=== PATIENT | male | born 1965 | race Caucasian/White ===

== ENCOUNTER → 2018-04-15 15:40 | Outpatient (CLI) | payer OTHER, SELFPAY ==
[2018-04-15 17:40] LABS: Absolute Lymphocyte Count 1.53 X10^3/ul (0.83-4.51); Absolute Neutrophil Count 3.4 X10^3/uL (2.0-7.7); Basophil# 0.04 X10^3/uL; Basophil% 0.7 % (0-1); Eosinophil# 0.09 X10^3/uL; Eosinophils% 1.6 % (0-5); Lymphocyte # 1.53 X10^3/ul (4.0); Lymphocyte % 27.8 % (19-41); Mean Corpuscular Hgb 31.7 pg (27.0-32.0); Mean Corpuscular Volume 93.1 fL (80-94); Mean Platelet Vol. 10.9 fl (6.2-12.0); Monocyte# 0.43 X10^3/uL; Monocyte% 7.8 % (0-10); Neutrophil # 3.41 X10^3/uL (2.7-7.7); Neutrophil % 61.9 % (47-70); Platelet Count 111 K/mm3 (150-450); RBC Distribution Width CV 12.8 % (11.6-14.6); RBC Distribution Width SD 43.1 fl (35.1-43.9); Red Blood Count 5.05 M/mm3 (4.6-6.2); White Blood Count 5.5 K/mm3 (4.4-11.0)
[2018-04-15 17:47] LABS: POSITIVE COUNT NO; POSITIVE DIFFERENTIAL NO; POSITIVE MORPHOLOGY NO
[2018-04-15 17:52] LABS: ALB/GLOB Ratio 1.3 RATIO (0.9-2.4); AST(SGOT) 17 U/L (15-37); Alanine Aminotransfer ALT/SGPT 40 U/L (16-61); Albumin, Serum 3.9 g/dL (3.2-5.0); Alkaline Phosphatase 59 U/L (45-117); Anion Gap 7 (5-15); BUN 17 mg/dL (7-18); BUN/Creat Ratio 24.3 RATIO (10-20); Calcium,Total 8.4 mg/dL (8.5-10.1); Chloride 103 mmol/L (98-107); EST Glomerular Filtration Rate 126 mL/min (>60); Est Glom Filt Rate - Afr Amer 152 mL/min (>60); Globulin 3.1 g/dL (2.2-4.2); Glucose 163 mg/dL (74-106); Potassium 4.2 mmol/L (3.5-5.1); Sodium Level 138 mmol/L (136-145); Thyroid Stim Hormone (TSH) 0.72 uIU/mL (0.358-3.74)
== END ==
PROVIDERS: Family Provider Family Medicine; PCP Family Medicine; Visit Provider Family Medicine
DX: E11.65 Type 2 diabetes mellitus with hyperglycemia (principal); E78.6 Lipoprotein deficiency; E78.1 Pure hyperglyceridemia
CPT/HCPCS: 36415; 80053; 84443; 85025

== ENCOUNTER → 2018-07-15 | Outpatient (CLI) | payer OTHER, SELFPAY ==
[2018-07-15 17:25] LABS: Vitamin B12 373 pg/mL (211-911)
[2018-07-15 17:38] LABS: Absolute Lymphocyte Count 1.43 X10^3/ul (0.83-4.51); Absolute Neutrophil Count 3.5 X10^3/uL (2.0-7.7); Basophil# 0.04 X10^3/uL; Basophil% 0.7 % (0-1); Eosinophil# 0.11 X10^3/uL; Hematocrit 45.6 % (40-54); Hemoglobin 16.3 g/dl (13.0-16.5); Lymphocyte # 1.43 X10^3/ul (4.0); Mean Corp Hgb Conc 35.7 g/gl (32-36); Mean Corpuscular Volume 89.6 fL (80-94); Monocyte# 0.44 X10^3/uL; Neutrophil # 3.48 X10^3/uL (2.7-7.7); Neutrophil % 63.1 % (47-70); Platelet Count 121 K/mm3 (150-450); RBC Distribution Width SD 42.1 fl (35.1-43.9); Red Blood Count 5.09 M/mm3 (4.6-6.2); White Blood Count 5.5 K/mm3 (4.4-11.0)
[2018-07-15 17:44] LABS: POSITIVE COUNT NO; POSITIVE DIFFERENTIAL NO; POSITIVE MORPHOLOGY NO
== END | disposition home or self-care (01) ==
LOC: LAB.FUTURE 16:12
PROVIDERS: Family Provider Family Medicine; PCP Family Medicine; Visit Provider Family Medicine
DX: D69.6 Thrombocytopenia, unspecified (principal); E11.65 Type 2 diabetes mellitus with hyperglycemia
CPT/HCPCS: 36415; 82607; 85025

== ENCOUNTER → 2018-09-15 | Outpatient (CLI) | payer OTHER, SELFPAY ==
[2018-09-15 13:11] LABS: Microalbumin,Random Urine 5.5 mg/L (NO RANGE EST.); Microalbumin:Creatinine Ratio 7.5 mg/g CRE (<30 mg/g CRE)
== END | disposition home or self-care (01) ==
LOC: BFHLAB 09:25
PROVIDERS: Family Provider Family Medicine; PCP Family Medicine; Visit Provider Family Medicine
DX: E11.65 Type 2 diabetes mellitus with hyperglycemia (principal); D69.6 Thrombocytopenia, unspecified
CPT/HCPCS: 82043; 82570

== ENCOUNTER → 2019-04-05 09:24 | Outpatient (CLI) | payer OTHER, SELFPAY ==
[2019-04-05 12:53] LABS: Thyroid Stim Hormone (TSH) 1.59 uIU/mL (0.358-3.74)
== END ==
PROVIDERS: PCP Family Medicine; Visit Provider Family Medicine
DX: R53.83 Other fatigue (principal); R68.82 Decreased libido
CPT/HCPCS: 36415; 84403; 84443

== ENCOUNTER → 2020-02-22 14:07 | Outpatient (CLI) | payer OTHER, SELFPAY ==
[2020-02-22 16:41] LABS: Follicle Stimulating Hormone 6.3 mIU/mL
== END ==
PROVIDERS: PCP Family Medicine; Visit Provider Family Medicine
DX: E34.9 Endocrine disorder, unspecified (principal)
CPT/HCPCS: 36415; 83001; 83002; 84403

== ENCOUNTER 2021-09-18 21:41 | Emergency (ER) | payer OTHER, BC, SELFPAY ==
[2021-09-18 21:42] VITALS: BP 148/86; PULSE 83; RESP 16; TEMP 36.7; O2SAT 98; BMI 28.4
--- NOTE | 2021-09-18 22:46 | CT_ITS ---
STUDY: CT ABDOMEN AND PELVIS WITH CONTRAST REASON FOR EXAM: Male, 55 years old. ? Hematoma versus active extravasation S/P surgery RADIATION DOSAGE (If Supplied By Facility): CTDIvol = ( 14.03 ) mGy, DLP = ( 999.83 ) mGycm TECHNIQUE: Transaxial images were obtained from the dome of the diaphragm to the symphysis pubis without oral contrast. IV 100mL Isovue-370 was administered. Sagittal and coronal images were reconstructed. Individualized dose optimization techniques were used for this CT. COMPARISON: None. FINDINGS: The visualized lung bases are unremarkable. The visualized portions of the heart are within normal limits. Normal liver. Normal gallbladder and extrahepatic biliary system. Normal spleen. Normal pancreas. Normal bilateral adrenal glands. Normal right kidney. Normal left kidney. Normal visualized stomach. Normal small intestine. Normal colon. The appendix is visualized and appears normal. Normal abdominal aorta. Normal inferior vena cava. Normal retroperitoneum. Normal urinary bladder. Normal visualized prostate gland. Edema and soft tissue gas in the subcutaneous tissues superior to the penis, and along the proximal base of the penis. Edema throughout the scrotum. A surgical drain courses around the dorsal penis and terminates in the scrotum. There is no finding of hematoma or extravasation. Degenerative changes in the thoracolumbar spine. CT/Abdomen/Pelvis W IV Cont ONLY IMPRESSION: Postoperative swelling and gas about the groin, penis, and scrotum without finding of hematoma or active extravasation. Electronically Signed: Papo Escobar MD at 0:16 EDT ,
[2021-09-18 23:15] LABS: Absolute Lymphocyte Count 0.89 X10^3/uL (0.83-4.51); Absolute Neutrophil Count 6.3 X10^3/uL (2.0-7.7); Basophil# 0.03 X10^3/uL; Basophil% 0.4 % (0-1); Eosinophil# 0.08 X10^3/uL; Hematocrit 38.5 % (40-54); Hemoglobin 13.2 g/dL (13.0-16.5); Lymphocyte # 0.89 X10^3/ul (0.83-4.51); Mean Corp Hgb Conc 34.3 g/dL (32-36); Mean Corpuscular Hgb 32.1 pg (27.0-32.0); Mean Corpuscular Volume 93.7 fL (80-94); Mean Platelet Vol. 10.7 fl (6.2-12.0); Monocyte# 0.81 X10^3/uL; NRBC Flagged by Analyzer 0 % (0-5); Neutrophil # 6.27 X10^3/uL (2.7-7.7); Neutrophil % 77.2 % (47-70); Platelet Count 112 K/mm3 (150-450); RBC Distribution Width CV 12.8 % (11.6-14.6); Red Blood Count 4.11 M/mm3 (4.6-6.2); White Blood Count 8.1 K/mm3 (4.4-11.0)
[2021-09-18 23:17] LABS: International Normalized Ratio 1.1; Prothrombin Time (Protime)PT. 13.8 SECONDS (11.7-14.9)
[2021-09-18 23:18] LABS: Partial Thromboplast Time 30.7 Seconds (24.1-36.2)
[2021-09-18] MEDS: 0.9% Normal Saline 1,000 ML 999 ML IV (23:25)
[2021-09-18 23:43] LABS: Anion Gap 6 (5-15); BUN 19 mg/dL (7-18); BUN/Creat Ratio 23.6 RATIO (10-20); Calcium,Total 8.3 mg/dL (8.5-10.1); Chloride 109 mmol/L (98-107); EST Glomerular Filtration Rate 106 mL/min (>60); Est Glom Filt Rate - Afr Amer 128 mL/min (>60); Estimated Creatinine Clearance 94.15 ml/min; Glucose 225 mg/dL (74-106); Potassium 3.7 mmol/L (3.5-5.1); Sodium Level 139 mmol/L (136-145)
--- NOTE | 2021-09-19 00:35 | EDS_ITS ---
HPI History of Present Illness Chief Complaint: Male Pain/Injury Narrative Narrative: Patient is a 55-year-old male with past medical history of diabetes and erectile dysfunction. He underwent a penis pump implant placement today at an outside hospital which finished surgery around 10 AM. He states he was doing well but this evening developed increased bleeding from the surgical incision sites and is concerned him and therefore he presents for evaluation. He denies any history of bleeding disorder or blood thinner use. [facility] Medical History (Updated 09/19/21 @ 00:[address] Antwan Cohen DO) Diabetes Diabetes Erectile dysfunction High blood pressure High cholesterol High triglycerides Obesity Seasonal allergies Vision problem Home Medications arginine (L-arginine) 500 mg capsule mg PO 06/15/20 [History Last Taken Unknown] aspirin 81 mg tablet,delayed release (Adult Low Dose Aspirin) 81 mg PO DAILY 06/15/20 [History Last Taken Unknown] chromium picolinate 200 mcg tablet 200 mcg PO DAILY 06/15/20 [History Last Taken Unknown] cinnamon bark-chromium picolinate 500 mg-100 mcg capsule cap PO 06/15/20 [History Last Taken Unknown] metformin 500 mg tablet mg PO 06/15/20 [History Last Taken Unknown] sitagliptin 50 mg tablet ea PO 06/15/20 [History Last Taken Unknown] Allergy/AdvReac Type Severity Reaction Status Date / Time doxycycline Allergy Hives Verified 09/18/21 21:47 Family History Other defect Cancer Myocardial infarction Social History (Updated 06/15/20 @ 17:[address] Mika Pelaez MD) Smoking Status: Never smoker alcohol intake: current alcohol intake frequency: 0-2 drinks per day substance use type: does not use what type of physical activity do you participate in: walking ROS ROS ED Constitutional Constitutional ED: Denies chills or fever(s) ENT ENT ED: Denies sore throat Cardiovascular Cardiovascular: Denies chest pain or racing heartbeat Respiratory/Chest Respiratory/Chest: Denies cough or dyspnea Gastrointestinal Gastrointestinal: Denies abdominal pain, diarrhea, nausea or vomiting Genitourinary Genitourinary ED: Reports other Details: Positive testicular pain and swelling ; Denies dysuria Musculoskeletal Musculoskeletal: Denies myalgias Integumentary Denies rash Neurologic Neurologic: Denies headache(s) Hematologic/Lymphatic Hematologic/Lymphatic: Denies easy bleeding or easy bruising EXAM Physical Exam Const Vital Signs: 09/18/21 21:42 Temperature 98.1 F Temperature Source Temporal Pulse Rate 83 Respiratory Rate 16 Blood Pressure 148/86 H Blood Pressure Mean 106 Pulse Ox 98 Oxygen Delivery Method Room Air Positive well nourished and well developed General Appearance ED: well developed HEENT Reports moist mucous membranes Neck supple Resp normal respiratory effort and clear to auscultation bilaterally Cardio regular rate and regular rhythm GI non-tender and non-distended Auscultation: normoactive bowel sounds Palpation: soft Narrative: Patient has a large amount of ecchymosis and soft tissue swelling of the scrotum consistent with his recent surgery. There is no blood or discharge from the urethral meatus. The patient has a AMA drain inserted into the left side of the scrotum and it appears to be intact and draining appropriate amount of dark blood. There is another incision along the lower section of the left side scrotum which also appears to be clean dry and intact. There is no active bleeding noted at this time Extremity normal to inspection Neuro oriented x3 and CN's II-XII intact bilaterally Sensorium / Orientation: alert Psych mental status grossly normal Skin no rashes or lesions noted Skin Narrative: Soft tissue changes to the scrotum as documented above MDM MDM MDM Narrative Medical decision making narrative: Patient presented with stable vitals and no active bleeding as well as no history of bleeding disorder or blood thinner use. With his report of bleeding at home basic blood work was obtained as well as a CT scan to make sure there was no active extravasation. Blood work revealed a stable H&H and platelets at the patient's baseline. CT scan did not show any type of active extravasation. The case was discussed with urology on-call for the patient at the outside [facility] and they feel that with no active bleeding stable vitals and stable H&H there is no need for transfer. On reevaluation there has been no further bleeding in the ER and therefore patient will be discharged home with outpatient follow-up. Lab Data Attestation: I reviewed the patient's lab results. Labs: Laboratory Results - last 24 hr 09/18/21 09/18/21 09/18/21 23:00 23:00 23:00 WBC 8.1 RBC 4.11 L Hgb 13.2 Hct 38.5 L MCV 93.7 MCH 32.1 H MCHC 34.3 RDW Std Deviation 44.0 H RDW Coeff of Janak 12.8 Plt Count 112 L MPV 10.7 Immature Gran % (Auto) 0.400 Neut % (Auto) 77.2 H Lymph % (Auto) 11.0 L [place] % (Auto) 10.0 Eos % (Auto) 1.0 Baso % (Auto) 0.4 Absolute Neuts (auto) 6.3 Absolute Lymphs (auto) 0.89 Nucleated RBC % 0 PT 13.8 INR 1.1 APTT 30.7 Sodium 139 Potassium 3.7 Chloride 109 H Carbon Dioxide 24.0 Anion Gap 6 BUN 19 H Creatinine 0.80 Estim Creat Clear Calc 94.15 Est GFR (MDRD) Af Amer 128 Est GFR (MDRD) Non-Af 106 BUN/Creatinine Ratio 23.6 H Glucose 225 H Calcium 8.3 L Radiography Diagnostic Testing: Clinical Impression(s) from Imaging Studies Abdomen/Pelvis CT 09/18/21 22:46 IMPRESSION: Postoperative swelling and gas about the groin, penis, and scrotum without finding of hematoma or active extravasation. Electronically Signed: Papo Escobar MD at 0:16 EDT , Discharge Plan Triage Chief Complaint: Male Pain/Injury ED Provider: Antwan Cohen Dx/Rx/DC Orders Clinical Impression: Postoperative bleeding from incision, Erectile dysfunction, Diabetes Instructions: ED Hematoma Prescriptions: No Action metformin 500 mg tablet PO sitagliptin 50 mg tablet PO Label Comments: TAKE 1 TABLET BY MOUTH ONCE DAILY aspirin [Adult Low Dose Aspirin] 81 mg tablet,delayed release (DR/EC) 81 mg PO DAILY chromium picolinate 200 mcg tablet 200 mcg PO DAILY cinnamon bark-chromium picolinate 500 mg-100 mcg capsule 500-100 mg-mcg capsule PO arginine (L-arginine) 500 mg capsule PO Primary Care Provider: Franki Vincent Referrals: Franki Vincent MD [Primary Care Provider] - Activity Restrictions/Additional Instructions: Continue to wear tight fitting underwear and gauze pads as bleeding can occur through the incision sites with changes in position and gravity. If you have more bleeding then he feels appropriate or develop lightheadedness or dizziness or passing out please return to the ER for repeat evaluation Disposition Disposition: Home, Self Care
[2021-09-19 00:58] VITALS: BP 128/79; PULSE 71; RESP 15; O2SAT 99
== END 2021-09-19 00:58 | disposition home or self-care (01) ==
PROVIDERS: Emergency Provider Emergency Medicine; PCP Family Medicine; Visit Provider Emergency Medicine
DX: L76.21 Postprocedural hemorrhage of skin and subcutaneous tissue following a dermatologic procedure (principal); E11.9 Type 2 diabetes mellitus without complications; N52.9 Male erectile dysfunction, unspecified
CPT/HCPCS: 74177; 80048; 85025; 85610; 85730; 99283; J7030; Q9967; A4216

== ENCOUNTER 2023-08-19 06:29 | Day surgery (SDC) | payer OTHER, BC, SELFPAY ==
[2023-08-19] VITALS (9 sets, daily range): BP systolic 101–163; BP diastolic 73–84; PULSE 59–74; RESP 14–16; TEMP 36.1–36.6; O2SAT 100; BMI 27.1
[2023-08-19] MEDS: Lactated Ringers 1,000 ML 15 ML IV (07:22)
--- NOTE | 2023-08-19 07:37 | PCM.PRE.AN2 ---
ASA Classification* ASA Classification ASA Classification: 2 Assessment & Plan Anesthesia* Anesthesia Assessment Anesthesia Assessment: Discussed sedation and/or anesthesia options, risks, benefits, and alternatives with patient/parents/legal guardian/POA. Questions invited. The patient/parents/legal guardian/POA seems to understand and agrees to proceed with anesthesia plan. Reviewed the physical assessment, medical history, allergy history and patient home medications list prior to surgery/procedure/anesthetic and documented any changes. Performed airway and anesthesia risk assessments. Anesthesia Type Anesthesia Type: MAC (see written pre anesthesia record for complete assessment) Pre-Assessment Diagnosis/Proposed Procedure Planned Operative Procedure(s): CSCOPE OA Anesthesia History Anesthesia History - acting instructor: Anesthesia History - acting instructor Hx Hospitalization No 08/13/23 14:39 Any Problems With Anesthesia No 08/13/23 14:39 Cholinesterase deficiency No 08/13/23 14:39 You/Your Family Experience No 08/13/23 14:39 fever (hyperthermia) with Relationship Recent Exposure to Contagious No 08/19/23 07:17 Disease Does patient have nerve No 08/13/23 14:39 stimulator Patient instructed to have device shut off --Does patient have Pacemaker No 08/19/23 07:17 or ICD? When Was Last Pacemaker Check QUESTION #4 FULL TEXT: You/Your Family Experience fever (hyperthermia) with Anesthesia Last Oral Intake Last Oral intake: Last Oral Intake NPO since 03:30 08/19/23 07:17 Meds taken in AM with sips of No 08/19/23 07:17 water? Meds patient instructed to take am of surgery PONV PONV - acting instructor: PONV - acting instructor Female No 08/13/23 14:39 HX of Motion Sickness No 08/13/23 14:39 HX of N/V After Surgery No 08/13/23 14:39 Non-Smoker Yes 08/13/23 14:39 Duration of Surgery greater No 08/13/23 14:39 than 60 minutes Number of Risk Factors 1 08/13/23 14:39 PONV Score Low Risk 08/13/23 14:39 Height & Weight Height & Weight: Anesthesia: Height & Weight Height 5 ft 6 in 08/19/23 07:17 Weight: 76.2 kg 08/19/23 07:17 Body Mass Index (BMI) 27.1 08/19/23 07:17 Respiratory Assessment Respiratory Assessment - acting instructor: Respiratory Tract Infection Hx - acting instructor Hx Respiratory Tract Infection No 08/13/23 14:39 STOP Sleep Apnea STOP Sleep Apnea - acting instructor: STOP Sleep Apnea - acting instructor Hx Hypertension Yes: NO MEDS FOR MANY YRS 08/13/23 14:39 PER PATIENT Hx Sleep Apnea No 08/13/23 14:39 CPAP BIPAP Do you snore loudly (louder No 08/13/23 14:39 than talking or can be heard Do you often feel tired/ No 08/13/23 14:39 fatigued/ sleepy during daytime? Has anyone observed you stop No 08/13/23 14:39 breathing during sleep? STOP Results Negative 08/13/23 14:39 QUESTION #5 FULL TEXT : Do you snore loudly (louder than talking or can be heard through closed doors)? Tobacco Use History Tobacco Use History - acting instructor: Tobacco Use History - acting instructor Tobacco Use Smoking Status Never smoker 08/13/23 14:39 Hx Tobacco Use No 08/13/23 14:39 Years Smoking Packs Smoked per Day Smoking Cessation Date was within the last 15 years Hx Smoking Cessation Date Hx Smoking Cessation Counseling Hematologic Medial History Hematologic Hx - acting instructor: Hematologic Medical Hx - electrophysiology tech Hx of Blood Transfusion No 08/13/23 14:39 Hx of Transfusion in last 3 No 08/13/23 14:39 Months Date of Last Transfusion (if within last 3 months) Ever experience any problems No 08/13/23 14:39 with transfusion(s)? Specify any problems Hx of Preganancy in last 3 N/A 08/13/23 14:39 Months Nurse Filling Out Transfusion DSCHRIBER 08/13/23 14:39 & Questions: Date: 08/13/23 08/13/23 14:39 Time: 14:41 08/13/23 14:39 Patient unable to answer at this time (ie. confused, unrespo /Reproduction History /Reproductive History - acting instructor: /Reproductive Hx- acting instructor Hx Now No 08/13/23 14:39 Gestational Age (in weeks): EDC: Hx Hx Para Hx Section SAB No 08/13/23 14:39 Active Medications Active Medications: Current Medications Generic Name Dose Route Start Last Admin Trade Name Freq PRN Reason Stop Dose Admin Lactated Ringer's 1,000 mls @ 15 mls/hr 08/19/23 07:30 08/19/23 07:22 IV 15 mls/hr .Q48H MARILUZ Administration Anesthesia Focused Assessment* Temperature: 97 F Pulse Rate: 59 Blood Pressure: 163/84 Respiratory Rate: 16 Pulse Ox: 100 Airway Assessment Mouth opens: >3 cm Mallampati Score: II Focused Labs Anesthesia Preop lab: CBC WBC 8.1 K/mm3 (4.4-11.0) 09/18/21 23:00 RBC 4.11 M/mm3 (4.6-6.2) L 09/18/21 23:00 Hgb 13.2 g/dL (13.0-16.5) 09/18/21 23:00 Hct 38.5 % (40-54) L 09/18/21 23:00 Plt Count 112 K/mm3 (150-450) L 09/18/21 23:00 CHEMISTRY Potassium 3.7 mmol/L (3.5-5.1) 09/18/21 23:00 Sodium 139 mmol/L (136-145) 09/18/21 23:00 BUN 19 mg/dL (7-18) H 09/18/21 23:00 Creatinine 0.80 mg/dL (0.70-1.30) 09/18/21 23:00 Glucose 225 mg/dL (74-106) H 09/18/21 23:00 TSH 1.59 uIU/mL (0.358-3.74) 04/05/19 09:26 COAG PT 13.8 SECONDS (11.7-14.9) 09/18/21 23:00 Review of Systems (Anesthesia) ROS Narrative System reviewed and no additional complaints, except as documented. [facility] Medical History Wears glasses Wears dentures Dietary restriction Shortness of breath on exertion Non-smoker Leg cramps Hypertension Blind right eye Hx of colonic polyps Diabetes Erectile dysfunction Obesity High triglycerides High cholesterol Home Medications ?Medication ?Instructions ?Recorded ?Last Taken ?Type aspirin 81 mg tablet,delayed 81 mg PO DAILY 06/15/20 Unknown History release (Adult Low Dose Aspirin) cinnamon bark-chromium picolinate 2 cap PO DAILY 06/15/20 Unknown History 500 mg-100 mcg capsule metformin 500 mg tablet 1,000 mg PO BID 06/15/20 Unknown History omega-3 fatty acids-fish oil 360 1 cap PO DAILY 06/09/23 Unknown History mg-1,200 mg capsule (Fish Oil) zinc gluconate 30 mg tablet 30 mg PO DAILY 06/09/23 Unknown History atorvastatin 20 mg tablet 20 mg PO DAILY 08/13/23 Unknown History dapagliflozin propanediol 10 mg 10 mg PO DAILY 08/13/23 Unknown History tablet (Farxiga) Allergy/AdvReac Type Severity Reaction Status Date / Time doxycycline Allergy Hives Verified 08/13/23 14:37 latex Allergy Rash Verified 08/13/23 14:37 Family History Grandmother Colon cancer Other defect Cancer Myocardial infarction Surgical History History of vasectomy Hx of hernia repair History of anal fistulotomy Hx of colonoscopy Social History household members: spouse current occupational status: employed Smoking Status: Never smoker alcohol intake: current alcohol intake frequency: 0-2 drinks per day substance use type: does not use what type of physical activity do you participate in: walking
--- NOTE | 2023-08-19 07:44 | PCM.HP.STD ---
[facility] - General General Date of Service: 08/19/23 Chief Complaint: Screening for intestinal cancer [facility] Narrative ROSCOE ORTIZ, is a 57 M who presents via open access today. Previously had a history of colon polyps March 2013. I assisted him at the [facility] with a colonoscopy. He has a maternal grandmother had colon cancer. The patient does take fish oil but that has been held. He denies any abdominal pain. No bright red blood per rectum or melena. [facility] Medical History Wears glasses Wears dentures Dietary restriction Shortness of breath on exertion Non-smoker Leg cramps Hypertension Blind right eye Hx of colonic polyps Diabetes Erectile dysfunction Obesity High triglycerides High cholesterol Home Medications ?Medication ?Instructions ?Recorded ?Last Taken ?Type aspirin 81 mg tablet,delayed 81 mg PO DAILY 06/15/20 Unknown History release (Adult Low Dose Aspirin) cinnamon bark-chromium picolinate 2 cap PO DAILY 06/15/20 Unknown History 500 mg-100 mcg capsule metformin 500 mg tablet 1,000 mg PO BID 06/15/20 Unknown History omega-3 fatty acids-fish oil 360 1 cap PO DAILY 06/09/23 Unknown History mg-1,200 mg capsule (Fish Oil) zinc gluconate 30 mg tablet 30 mg PO DAILY 06/09/23 Unknown History atorvastatin 20 mg tablet 20 mg PO DAILY 08/13/23 Unknown History dapagliflozin propanediol 10 mg 10 mg PO DAILY 08/13/23 Unknown History tablet (Farxiga) Allergy/AdvReac Type Severity Reaction Status Date / Time doxycycline Allergy Hives Verified 08/13/23 14:37 latex Allergy Rash Verified 08/13/23 14:37 Family History Grandmother Colon cancer Other defect Cancer Myocardial infarction Surgical History History of vasectomy Hx of hernia repair History of anal fistulotomy Hx of colonoscopy Social History household members: spouse current occupational status: employed Smoking Status: Never smoker alcohol intake: current alcohol intake frequency: 0-2 drinks per day substance use type: does not use what type of physical activity do you participate in: walking ROS Constitutional Constitutional: Reports systems reviewed and no addt'l complaints, except as documented Cardiovascular Cardiovascular: Denies chest pain Respiratory/Chest Respiratory/Chest: Denies shortness of breath at rest Gastrointestinal Gastrointestinal: Denies abdominal pain, change in bowel habits, hematochezia or melena Vital Signs Vital Signs Vital Signs: 08/19/23 07:17 08/19/23 07:17 08/19/23 07:37 Temperature 97 F L 97 F L Temperature Source Temporal Pulse Rate 59 L 59 L Respiratory Rate 16 16 Respiratory Pattern Normal Blood Pressure 163/84 H 163/84 H Blood Pressure Mean 110 Blood Pressure Source Monitor Blood Pressure Position Semi-Fowlers Blood Pressure Location Right Arm Pulse Ox 100 100 Oxygen Delivery Method Room Air Weight Weight: 167 lb 15.876 oz Body Mass Index (BMI) 27.1 Physical Exam Const alert, oriented x3 and no apparent distress General Appearance: cooperative and comfortable Eyes General Eye: normal appearance of both eyes Neck General: normal visual inspection Chest inspection of chest normal Resp Effort and Inspection: able to speak in complete sentences and symmetric chest movement Auscultation: clear to auscultation bilaterally Cardio regular rate and regular rhythm GI soft to palpation, non-tender and non-distended Extremity no calf tenderness Neuro oriented x3 Psych thought process normal Assessment & Plan Assessment/Plan (1) Encounter for screening for malignant neoplasm of colon: PLAN: Patient with a personal history of colon polyps. Remote colonoscopy March 2013. He presents via open access today. I propose for him a colonoscopy with possible biopsy or polypectomy as indicated. He is aware of technique, benefit, risk, alternatives. He is had an opportunity to ask and have questions answered. We will proceed as noted. Nabor Mejia M.D., F.A.C.S.
[2023-08-19 07:57] LABS: Bedside Glucose 178 mg/dL (74-106)
--- NOTE | 2023-08-19 08:13 | OP.COLON_ITS ---
Patient Name: Quentin Jeronimo Procedure Date: 08/19/2023 7:49 AM Date of : 1965 Age: 57 Procedure: Colonoscopy Indications: Screening for colorectal malignant neoplasm Providers: Nabor Mejia MD Referring MD: Nabor Mejia MD Medicines: See the Anesthesia note for documentation of the administered medications Patient Profile: Last Colonoscopy: March 2013. Complications: No immediate complications. Procedure: Pre-Anesthesia Assessment: - Prior to the procedure, a History and Physical was performed, and patient medications and allergies were reviewed. The patient's tolerance of previous anesthesia was also reviewed. The risks and benefits of the procedure and the sedation options and risks were discussed with the patient. All questions were answered, and informed consent was obtained. Prior Anticoagulants: The patient has taken no anticoagulant or antiplatelet agents. ASA Grade Assessment: II - A patient with mild systemic disease. After reviewing the risks and benefits, the patient was deemed in satisfactory condition to undergo the procedure. After I obtained informed consent, the scope was passed under direct vision. Throughout the procedure, the patient's blood pressure, pulse, and oxygen saturations were monitored continuously. The adult colonoscope was introduced through the anus and advanced to the cecum, identified by appendiceal orifice and ileocecal valve. The colonoscopy was performed without difficulty. The patient tolerated the procedure well. The quality of the bowel preparation was good. The ileocecal valve and the appendiceal orifice were photographed. Scope In: 7:57:57 AM Scope Withdrawal Time 0 hours 7 minutes 16 seconds Scope Out: 8:09:23 AM Total Procedure Duration Time 0 hours 11 minutes 26 seconds Findings: The digital rectal exam findings include non-thrombosed external hemorrhoids, non-thrombosed internal hemorrhoids and internal hemorrhoids (Grade I). Pertinent negatives include normal prostate (size, shape, and consistency). A few diverticula were found in the sigmoid colon. The exam was otherwise without abnormality. Impression: - Non-thrombosed external hemorrhoids, non-thrombosed internal hemorrhoids and internal hemorrhoids (Grade I) found on digital rectal exam. - Diverticulosis in the sigmoid colon. - The examination was otherwise normal. - No specimens collected. Recommendation: - Discharge patient to home. - Resume previous diet. - Continue present medications. - Repeat colonoscopy in 10 years for screening purposes. Procedure Code(s): --- Professional --- 22546, Colonoscopy, flexible; diagnostic, including collection of specimen(s) by brushing or washing, when performed (separate procedure) Diagnosis Code(s): --- Professional --- Z12.11, Encounter for screening for malignant neoplasm of colon K64.0, First degree hemorrhoids K64.4, Residual hemorrhoidal skin tags K57.30, Diverticulosis of large intestine without perforation or abscess without bleeding CPT copyright 2021 [employer]. All rights reserved. The codes documented in this report are preliminary and upon manager monitoring review may be revised to meet current compliance requirements. Nabor Mejia MD 08/19/2023 8:13:29 AM This report has been signed electronically. Number of Addenda: 0 Note Initiated On: 08/19/2023 7:49 AM
--- NOTE | 2023-08-19 08:14 | OP.CCLET_ITS ---
08/19/2023 Kev Jaimes MD Re : Colonoscopy procedure for Quentin Jeronimo Dear Dr. Jaimes This procedure was performed on Saturday, August 19, 2023. My impressions and recommendations are as follows: Impressions : - Non-thrombosed external hemorrhoids, non-thrombosed internal hemorrhoids and internal hemorrhoids (Grade I) found on digital rectal exam. - Diverticulosis in the sigmoid colon. - The examination was otherwise normal. - No specimens collected. Recommendations : - Discharge patient to home. - Resume previous diet. - Continue present medications. - Repeat colonoscopy in 10 years for screening purposes. My findings are described in the full procedure note, which is enclosed. If I can be of further assistance, please feel free to contact me at Doctor phone number(s): Work: . Sincerely, Nabor Mejia MD 08/19/2023 8:13:29 AM This report has been signed electronically.
--- NOTE | 2023-08-19 08:18 | PCM.POST.ANE ---
Anesthesia: Postop Eval I Current Vital Signs Temperature: 97.9 F Pulse Rate: 67 Blood Pressure: 104/73 Respiratory Rate: 14 Pulse Ox: 100 Oxygen Delivery Method: Room Air Assessment Airway patent: Yes Spontaneous unlabored respirations: Yes Mental status: Awake and Calm nausea: No Vomiting: No Anesthesia Complication: No Fluid Hydration Crystalloid volume administer (ml): 600 Total IV fluid infused: 600 Progress Note Anesthesia document: Postop Eval 1 completed: Yes
--- NOTE | 2023-08-19 12:59 | PCM.POSTANE2 ---
Anesthesia Postop Eval I Sum Postop Eval Completion status Anesthesia document: Postop Eval 1 completed: Yes Anesthesia Postop Eval I Summary Anesthesia Postop Eval I Summary: Anesthesia Postop Eval I: Assessment Summary Airway patent Yes 08/19/23 08:22 [email or web address] Spontaneous unlabored Yes 08/19/23 08:22 [email or web address] respirations Mental status Awake,Calm 08/19/23 08:22 [email or web address] nausea No 08/19/23 08:22 [email or web address] Vomiting No 08/19/23 08:22 [email or web address] Anesthesia Postop Eval I: Fluid Summary Crystalloid volume administer 600 08/19/23 08:22 [email or web address] (ml) Colloids volume administered ( ml) Blood Product volume administered (ml) Total IV fluid infused 600 08/19/23 08:22 [email or web address] Anesthesia Postop Eval I: Summary Notes Anesthesia Complication No 08/19/23 08:22 [email or web address] Anesthesia Complication Comment: Post-operative progress note Anesthesia: Postop Eval II Evaluation Mental status: Awake and Calm Pain Level: 0 nausea: No Vomiting: No Complications Anesthesia Complication: No
== END 2023-08-19 08:58 | disposition home or self-care (01) ==
LOC: EN 07:39 → AC 07:39
PROVIDERS: PCP Family Medicine; Referring Provider Family Medicine; Visit Provider Surgery
PROC: 0DJD8ZZ Inspection of Lower Intestinal Tract, Via Natural or Artificial Opening Endoscopic (ICD-10-PCS; CPT 45378; principal; 2023-08-19 07:25)
DX: Z12.11 Encounter for screening for malignant neoplasm of colon (principal); E11.9 Type 2 diabetes mellitus without complications; K64.0 First degree hemorrhoids; Z80.0 Family history of malignant neoplasm of digestive organs; E78.00 Pure hypercholesterolemia, unspecified; I10 Essential (primary) hypertension; Z86.010 Personal history of colon polyps; K64.4 Residual hemorrhoidal skin tags; K57.30 Diverticulosis of large intestine without perforation or abscess without bleeding; Z79.82 Long term (current) use of aspirin; Z79.84 Long term (current) use of oral hypoglycemic drugs; Z79.899 Other long term (current) drug therapy
CPT/HCPCS: 45378; 82962; J7120; J2405